=== PATIENT | male | born 1995 | race Hispanic/Latino ===

== ENCOUNTER 2021-06-18 21:23 | Emergency (ER) | payer OTHER, BC ==
[2021-06-18] MEDS ORDERED: Lidocaine 1% w/Epinephrine 1:100K 20 ML VIAL ONE (21:45)
[2021-06-18] MEDS ORDERED: Boostrix 0.5 ML (Tdap) VIAL ONE (21:46)
== END 2021-06-18 23:15 | disposition home or self-care (01) ==
LOC: CSHERS 21:23
DX: S01.81XA Laceration without foreign body of other part of head, initial encounter (principal); Z23 Encounter for immunization; V27.4XXA Motorcycle driver injured in collision with fixed or stationary object in traffic accident, initial encounter; Y93.55 Activity, bike riding; Y92.410 Unspecified street and highway as the place of occurrence of the external cause; Y99.8 Other external cause status
CPT/HCPCS: 12053; 70450; 90471; 90715